=== PATIENT | male | born 1975 | race Caucasian/White ===

== ENCOUNTER 2025-03-27 02:40 | Inpatient (IN) | payer OTHER, SELFPAY ==
[2025-03-27] MEDS ORDERED: ONDANSETRON 4 MG/2 ML VIAL ONE ×3 (02:57→12:44)
[2025-03-27] MEDS ORDERED: FAMOTIDINE 20 MG/2 ML VIAL IV ONE (02:57)
[2025-03-27] MEDS ORDERED: MORPHINE 4 MG/ML SYR ONE ×2 (02:57→04:02)
[2025-03-27] MEDS ORDERED: NA CHLORIDE 0.9% 1,000 ML ONE ×2 (02:58→08:57)
[2025-03-27 03:19] LABS: Absolute Lymphocytes (CBC) 1.9 K/uL (0.7-4.9); Hematocrit 53.1 % (39.6-49.0); Hemoglobin 18.0 g/dL (13.6-17.9); MCH 29.7 pg (27.0-35.0); MCHC 33.9 g/dL (32.0-36.0); MCV 87.8 fL (80-100); MPV 8.1 fL (7.6-11.3); Nucleated RBC Absolute Count 0.0 (0-0); Nucleated Red Blood Cells % 0.1 % (0-0); RBC Red Blood Cell Count 6.05 M/uL (4.33-5.43); White Blood Count 13.70 thou/uL (4.3-10.9)
[2025-03-27 03:29] LABS: ALT/SGPT 39.0 U/L (16-61); AST/SGOT 22.0 U/L (15-37); Albumin 4.2 g/dL (3.4-5.0); Albumin/Globulin Ratio 1.1 (1.1-1.8); Alkaline Phosphatase 58.0 U/L (45-117); Anion Gap 7.7 mEq/L (5.0-15.0); BUN Blood Urea Nitrogen 27.0 mg/dL (7-18); Globulin 3.8 g/dL (2.3-3.5); Glucose Level 152.0 mg/dL (74-106); Lipase 27.0 U/L (13-75); Potassium 3.7 mEq/L (3.5-5.1)
--- NOTE | 2025-03-27 06:21 | RAD REPORT ---
EXAM: CT Abdomen and Pelvis With Intravenous Contrast CLINICAL HISTORY: The patient is 49 years old and is Male; ABD PAIN TECHNIQUE: Axial computed tomography images of the abdomen and pelvis with intravenous contrast. Sagittal and coronal reformatted images were created and reviewed. This CT exam was performed using one or more of the following dose reduction techniques: automated exposure control, adjustmen t of the mA and/or kV according to patient size, and/or use of iterative reconstruction technique. COMPARISON: No relevant prior studies available. FINDINGS: Lung bases: Unremarkable. No mass. No consolidation. ABDOMEN: Liver: Unremarkable. No mass. Gallbladder and bile ducts: 3.8 cm gallstone near the gallbladder neck. Mildly distended gallblad nila. No ductal dilation. Pancreas: No findings to suggest acute pancreatitis. No mass visualized. No ductal dilation. Spleen: Unremarkable. No splenomegaly. Adrenals: Unremarkable. No mass. Kidneys and ureters: Unremarkable. No solid mass. No hydronephrosis. Stomach and bowel: No bowel dilatation or obstruction. No bowel wall thickening. PELVIS: Appendix: The visualized appendix is normal. No pericecal inflammation to suggest acute appendici tis. Bladder: Unremarkable. No mass. Reproductive: Unremarkable as visualized. ABDOMEN and PELVIS: Intraperitoneal space: Unremarkable. No free air. No significant fluid collection. Bones/joints: L5-S1 degenerative disc disease. No acute fracture. No dislocation. Soft tissues: Umbilical hernia containing fat only. No evidence of edema/incarceration. Vasculature: Unremarkable. No abdominal aortic aneurysm. Lymph nodes: No pathologically enlarged lymph nodes. IMPRESSION: 3.8 cm gallstone near the gallbladder neck. Mildly distended gallbladder. Ultrasound follow-up john paul mmended. Electronically signed by: Ela Case MD 03/27/2025 05:42 AM CDT V2 Due to temporary technical issues with the [employer] reporting system, reports are being nicolasa d by the in-house radiologist without review as a courtesy to ensure prompt reporting the interpreting radiologist is fully responsible for the content of the report. Transcribed Date/Time: 03/27/2025 6:20 AM
[2025-03-27] MEDS ORDERED: KETOROLAC 30 MG/ML INJ ONE (06:29)
[2025-03-27] MEDS ORDERED: NA CHLORIDE 0.9% 100 ML ONE (06:30)
[2025-03-27] MEDS ORDERED: PIPERACIL/TAZO 3.375 GM VIAL IV ONE (06:30)
--- NOTE | 2025-03-27 06:36 | EDPHYS ---
Physician Documentation [facility] Name: Landry Bueno Age: 49 yrs Sex: Male : 1975 Arrival Date: 03/27/2025 Time: 02:40 Bed 14 Private MD: ED Physician Harmeet Wheeler HPI: 03/27 03:10 This 49 yrs old Male presents to ER via Wheelchair with complaints of Upper right side rt abd pain, Nausea. 03:10 Patient presents to the ED with an acute onset of an epigastric pain starting about rt 10:00 tonight. He has nausea, vomiting. States that the symptoms were acute in onset, have been constant since then. He has never had similar symptoms previously. Denies other acute complaints at this time, symptoms are moderate in severity, no other aggravating or alleviating factors.. Historical: - Allergies: 02:53 No Known Allergies; br2 - PMHx: 02:53 None; br2 - PSHx: 02:53 None; br2 - Immunization history:: Adult Immunizations up to date. - Infectious Disease History:: Denies. - Social history:: Smoking status: Patient denies any tobacco usage or history of. Patient/guardian denies using alcohol, street drugs. - Family history:: not pertinent. ROS: 03:10 Constitutional: Negative for fever, chills, and weight loss, Cardiovascular: Negative rt for chest pain, palpitations, and edema, Respiratory: Negative for shortness of breath, cough, wheezing, and pleuritic chest pain, MS/Extremity: Negative for injury and deformity, Skin: Negative for injury, rash, and discoloration, Neuro: Negative for headache, weakness, numbness, tingling, and seizure, 03:10 Abdomen/GI: Positive for abdominal pain, nausea and vomiting, Exam: 03:10 Constitutional: This is a well developed, well nourished patient who is awake, alert, rt and in no acute distress. Head/Face: Normocephalic, atraumatic. Chest/axilla: Normal chest wall appearance and motion. Nontender with no deformity. No lesions are appreciated. Cardiovascular: Regular rate and rhythm with a normal S1 and S2. No gallops, murmurs, or rubs. Normal PMI, no JVD. No pulse deficits. Respiratory: Lungs have equal breath sounds bilaterally, clear to auscultation and percussion. No rales, rhonchi or wheezes noted. No increased work of breathing, no retractions or nasal flaring. Abdomen/GI: Soft, non-tender, with normal bowel sounds. No distension or tympany. No guarding or rebound. No evidence of tenderness throughout. Skin: Warm, dry with normal turgor. Normal color with no rashes, no lesions, and no evidence of cellulitis. MS/ Extremity: Pulses equal, no cyanosis. Neurovascular intact. Full, normal range of motion. Neuro: Awake and alert, GCS 15, oriented to person, place, time, and situation. Cranial nerves II-XII grossly intact. Motor strength 5/5 in all extremities. Sensory grossly intact. Cerebellar exam normal. Normal gait. 03:10 ECG was reviewed by the Attending Physician. 03:12 Abdomen/GI: Tenderness to the right upper quadrant, epigastrium with mild guarding, no rt rebound, distention Vital Signs: 02:51 BP 139 / 92; Pulse 55; Resp 18; Pulse Ox 99% on R/A; Weight 149.69 kg; Height 6 ft. 1 br2 in. ; Pain 6/10; 04:04 BP 110 / 57; Pulse 50; Resp 18; Pulse Ox 98% ; cp4 05:18 BP 124 / 70; Pulse 52; Resp 18; Pulse Ox 96% ; cp4 07:14 BP 131 / 81; Pulse 56; Resp 15 S; Pulse Ox 97% on R/A; kc6 02:51 Body Mass Index 43.54 (149.69 kg, 185.42 cm) br2 02:51 Pain Scale: Adult br2 MDM: 02:50 Medical Screening Exam initiated rt 06:41 Differential diagnosis: Cholecystitis, cholelithiasis, pancreatitis, gastritis. Data rt reviewed: vital signs, nurses notes, lab test result(s), radiologic studies. Consideration of Admission/Observation Patient was admitted/placed on observation. Management of patient was discussed with the following: Scaffold Worker: Discussed with Dr. Valencia, will evaluate patient, request hospitalist admission. I considered the following discharge prescriptions or medication management in the emergency department Medications were administered in the Emergency Department. See MAR. Independent interpretation of the following test(s) in the Emergency Department CT Scan: My interpretation is Cholelithiasis with dilated gallbladder seen on my interpretation of CT scan images. Counseling: I had a detailed discussion with the patient and/or guardian regarding the historical points, exam findings, and any diagnostic results supporting the discharge/admit diagnosis, lab results, radiology results, the need for further work-up and treatment in the hospital. Response to treatment: the patient's symptoms have markedly improved after treatment. 03/27 02:55 Order name: CBC with Diff; Complete Time: 03:50 rt 03/27 02:55 Order name: CMP; Complete Time: 03:50 rt 03/27 02:55 Order name: Lipase; Complete Time: 03:50 rt 03/27 02:55 Order name: UA Rfx Vishal Cult if indicated rt 03/27 03:04 Order name: Troponin High Sensitivity; Complete Time: 03:50 rt 03/27 08:29 Order name: CBC with Automated Diff EDMS 03/27 08:29 Order name: CBC with Automated Diff EDMS 03/27 08:29 Order name: Comprehensive Metabolic Panel EDMS 03/27 08:29 Order name: Comprehensive Metabolic Panel EDMS 03/27 02:55 Order name: CT Abd/Pelvis - IV Contrast Only rt 03/27 07:31 Order name: Abdomen Exam Limited EDMS 03/27 08:29 Order name: CONS Physician Consult EDMS 03/27 02:55 Order name: IV Saline Lock; Complete Time: 02:56 rt 03/27 02:55 Order name: Labs collected and sent; Complete Time: 02:56 rt EC:10 Rate is 50 beats/min. Rhythm is regular, Sinus bradycardia with No ectopy. Right axis rt deviation noted. PA interval is normal. QRS interval is normal. QT interval is normal. No Q waves. T waves are Inverted in leads III, V6. No ST changes noted. Administered Medications: 03:06 Drug: Famotidine IVP 20 mg IVP once; dilute with 10 mL 0.9% NaCl; give over 2 minutes cp4 Route: IVP; Site: left antecubital; 03:16 Follow up: Response: No adverse reaction cp4 03:06 Drug: NS 0.9% IV 1000 ml IV at 1 bolus Per protocol; to be given as a bolus over 60 cp4 minutes Route: IV; Rate: 1 bolus; Site: left antecubital; 06:53 Follow up: IV Status: Completed infusion cp4 03:07 Drug: Ondansetron IVP 4 mg IVP once; over 2 minutes Route: IVP; Site: left antecubital; cp4 03:16 Follow up: Response: No adverse reaction cp4 03:07 Drug: morphine IVP or IV 4 mg IVP once over 4 mins Route: IVP; Infused Over: 4 mins; cp4 Site: left antecubital; 03:16 Follow up: Response: No adverse reaction cp4 04:04 Drug: morphine IVP or IV 4 mg IVP once over 4 mins Route: IVP; Infused Over: 4 mins; cp4 Site: left antecubital; 06:53 Follow up: Response: No adverse reaction cp4 06:53 Drug: Ketorolac IVP 15 mg IVP once Route: IVP; Site: left antecubital; cp4 06:55 Follow up: Response: No adverse reaction cp4 06:53 Drug: Piperacillin-Tazobactam IVPB 3.375 grams IVPB once over 60 mins; (mix in NS 100 cp4 mL) Route: IVPB; Infused Over: 60 mins; Site: left antecubital; 07:16 Follow up: Response: No adverse reaction; IV Status: Completed infusion; IV Intake: kc6 100ml Disposition Summary: 03/27/25 06:35 Hospitalization Ordered Notes: Hospitalization Status: Inpatient Admission rt Provider: Slade Ramsey rt Condition: Stable rt Problem: new rt Symptoms: have improved rt Bed/Room Type: Standard rt Location: [facility] ER HOLD(03/27/25 10:51) kb3 Room Assignment: ERHOLD-(03/27/25 10:51) kb3 Diagnosis - Cholecystitis, unspecified rt Forms: - Medication Reconciliation Form rt - SBAR form rt - Leadership Thank You Letter rt Signatures: Dispatcher [employer] EDMS Annita Rushing RN RN kb3 Harmeet Wheeler MD MD rt Martha Martin cp4 Jaja Joseph RN RN br2 Courtney Nolan RN kc6 Corrections: (The following items were deleted from the chart) 02:56 02:56 CBC+H.LAB.BRZ ordered. EDMS EDMS 02:56 02:56 COMPREHENSIVE METABOLIC PANEL+C.LAB.BRZ ordered. EDMS EDMS 02:56 02:56 LIPASE+C.LAB.BRZ ordered. EDMS EDMS 02:56 02:56 UA Rfx Vishal Cult if indicated+U.LAB.BRZ ordered. EDMS EDMS 03:04 03:04 Troponin High Sensitivity+C.LAB.BRZ ordered. EDMS EDMS 10:51 06:35 Telemetry/MedSurg (Inpatient) rt kb3 10:51 06:35 rt kb3
--- NOTE | 2025-03-27 06:36 | ER ---
Nurse's Notes [facility] Name: Landry Bueno Age: 49 yrs Sex: Male : 1975 Arrival Date: 03/27/2025 Time: 02:40 Bed 14 Private MD: Diagnosis: Cholecystitis, unspecified Presentation: 03/27 02:51 Chief complaint: Patient states: RUQ PAIN NAUSEA/VOMITING SHARP/BURNING. Coronavirus br2 screen: Client denies travel out of the [place] in the last 14 days. Ebola Screen: Patient denies exposure to infectious person. Initial Sepsis Screen: Does the patient meet any 2 criteria? No. Patient's initial sepsis screen is negative. Does the patient have a suspected source of infection? No. Patient's initial sepsis screen is negative. Risk Assessment: Do you want to hurt yourself or someone else? Patient reports no desire to harm self or others. Onset of symptoms was March 26, 2025 at 22:00. 02:51 Method Of Arrival: Wheelchair br2 02:51 Acuity: SHIRLEY 3 br2 Triage Assessment: 02:53 General: Appears uncomfortable, Behavior is cooperative, anxious, restless. Pain: br2 Complains of pain in epigastric area, right upper quadrant and left upper quadrant Pain currently is 6 out of 10 on a pain scale. GI: Reports upper abdominal pain, epigastric pain, nausea, vomiting. Historical: - Allergies: 02:53 No Known Allergies; br2 - PMHx: 02:53 None; br2 - PSHx: 02:53 None; br2 - Immunization history:: Adult Immunizations up to date. - Infectious Disease History:: Denies. - Social history:: Smoking status: Patient denies any tobacco usage or history of. Patient/guardian denies using alcohol, street drugs. - Family history:: not pertinent. Screenin:52 [facility] ED Fall Risk Assessment (Adult) History of falling in the last 3 months, cp4 including since admission No falls in past 3 months (0 pts) Confusion or Disorientation No (0 pts) Intoxicated or Sedated No (0 pts) Impaired Gait No (0 pts) Mobility Assist Device Used No (0 pt) Altered Elimination No (0 pt) Score/Fall Risk Level 0 - 2 = Low Risk Oriented to surroundings, Maintained a safe environment, Assessed \T\ reinforced patient's understanding of fall precautions, Hourly rounding (assess needs \T\ fall precautionary measures) done. Abuse screen: Denies threats or abuse. Denies injuries from another. Nutritional screening: No deficits noted. Tuberculosis screening: No symptoms or risk factors identified. Never had TB. Assessment: 02:52 General: Appears in no apparent distress. uncomfortable, Behavior is calm, cooperative, cp4 appropriate for age. Pain: Complains of pain in abdomen Pain does not radiate. Pain currently is 9 out of 10 on a pain scale. Neuro: Level of Consciousness is awake, alert, obeys commands, Oriented to person, place, time, situation. Cardiovascular: Patient's skin is warm and dry. Respiratory: Airway is patent Respiratory effort is even, unlabored. GI: Abdomen is round non-distended, Bowel sounds present X 4 quads. Abd is soft and non tender X 4 quads. Reports upper abdominal pain. : No signs and/or symptoms were reported regarding the genitourinary system. EENT: No signs and/or symptoms were reported regarding the EENT system. Derm: No signs and/or symptoms reported regarding the dermatologic system. Musculoskeletal: No signs and/or symptoms reported regarding the musculoskeletal system. 07:15 General: Appears in no apparent distress. uncomfortable, obese, well groomed, well kc6 developed, Behavior is calm, cooperative, appropriate for age. Pain: Complains of pain in right upper quadrant. Neuro: Level of Consciousness is awake, alert, obeys commands, Oriented to person, place, time, situation, Appropriate for age. Cardiovascular: Capillary refill < 3 seconds. Respiratory: Airway is patent Trachea midline Respiratory effort is even, unlabored, Respiratory pattern is regular, symmetrical. GI: Abdomen is round non-distended, obese, Bowel sounds present X 4 quads. Abd is soft X 4 quads Abdomen is tender to palpation in right upper quadrant Reports upper abdominal pain, nausea, Patient currently denies diarrhea, vomiting. : No signs and/or symptoms were reported regarding the genitourinary system. EENT: No signs and/or symptoms were reported regarding the EENT system. Derm: No signs and/or symptoms reported regarding the dermatologic system. Skin is intact, is healthy with good turgor, Skin is pink, warm \T\ dry. Musculoskeletal: No signs and/or symptoms reported regarding the musculoskeletal system. Circulation, motion, and sensation intact. Range of motion: intact in all extremities. 08:15 Reassessment: Patient appears in no apparent distress at this time. No changes from kc6 previously documented assessment. Patient and/or family updated on plan of care and expected duration. Pain level reassessed. Patient is alert, oriented x 3, equal unlabored respirations, skin warm/dry/pink. Vital Signs: 02:51 BP 139 / 92; Pulse 55; Resp 18; Pulse Ox 99% on R/A; Weight 149.69 kg; Height 6 ft. 1 br2 in. ; Pain 6/10; 04:04 BP 110 / 57; Pulse 50; Resp 18; Pulse Ox 98% ; cp4 05:18 BP 124 / 70; Pulse 52; Resp 18; Pulse Ox 96% ; cp4 07:14 BP 131 / 81; Pulse 56; Resp 15 S; Pulse Ox 97% on R/A; kc6 02:51 Body Mass Index 43.54 (149.69 kg, 185.42 cm) br2 02:51 Pain Scale: Adult br2 ED Course: 02:42 Patient arrived in ED. gm2 02:42 Harmeet Wheeler MD is Attending Physician. rt 02:51 Jaja Joseph RN is Primary Nurse. br2 02:52 Bed in low position. Call light in reach. Side rails up X2. Provided Education on: cp4 abdominal pain . 02:52 No provider procedures requiring assistance completed. cp4 02:53 Triage completed. br2 02:53 Arm band placed on right wrist. br2 03:07 Initial lab(s) drawn, by ED staff, sent to lab. EKG done, by ED staff, reviewed by Harmeet Wheeler MD. Inserted saline lock: 20 gauge in left antecubital area, using aseptic technique. Blood collected. Flushed with 10 mL NS. 04:27 CT Abd/Pelvis - IV Contrast Only In Process Unspecified. EDMS 06:34 Slade Ramsey MD is Hospitalizing Provider. rt 07:00 Report received from ARMANDO Cantu. kc6 07:00 Patient has correct armband on for positive identification. Bed in low position. Call kc6 light in reach. Side rails up X2. Pulse ox on. NIBP on. Door closed. Noise minimized. Lights dimmed. Warm blanket given. Pillow given. Verbal reassurance given. 08:02 Abdomen Exam Limited In Process Unspecified. EDMS 09:00 Patient admitted, IV remains in place. kc6 Administered Medications: 03:06 Drug: Famotidine IVP 20 mg IVP once; dilute with 10 mL 0.9% NaCl; give over 2 minutes cp4 Route: IVP; Site: left antecubital; 03:16 Follow up: Response: No adverse reaction cp4 03:06 Drug: NS 0.9% IV 1000 ml IV at 1 bolus Per protocol; to be given as a bolus over 60 cp4 minutes Route: IV; Rate: 1 bolus; Site: left antecubital; 06:53 Follow up: IV Status: Completed infusion cp4 03:07 Drug: Ondansetron IVP 4 mg IVP once; over 2 minutes Route: IVP; Site: left antecubital; cp4 03:16 Follow up: Response: No adverse reaction cp4 03:07 Drug: morphine IVP or IV 4 mg IVP once over 4 mins Route: IVP; Infused Over: 4 mins; cp4 Site: left antecubital; 03:16 Follow up: Response: No adverse reaction cp4 04:04 Drug: morphine IVP or IV 4 mg IVP once over 4 mins Route: IVP; Infused Over: 4 mins; cp4 Site: left antecubital; 06:53 Follow up: Response: No adverse reaction cp4 06:53 Drug: Ketorolac IVP 15 mg IVP once Route: IVP; Site: left antecubital; cp4 06:55 Follow up: Response: No adverse reaction cp4 06:53 Drug: Piperacillin-Tazobactam IVPB 3.375 grams IVPB once over 60 mins; (mix in NS 100 cp4 mL) Route: IVPB; Infused Over: 60 mins; Site: left antecubital; 07:16 Follow up: Response: No adverse reaction; IV Status: Completed infusion; IV Intake: kc6 100ml Medication: 02:52 VIS not applicable for this client. cp4 Intake: 07:16 IV: 100ml; Total: 100ml. kc6 Outcome: 06:35 Decision to Hospitalize by Provider. rt 09:00 Admitted to ER Hold. [facility]. kc6 09:00 Condition: good 09:00 Instructed on the need for admit, 11:46 Patient left the ED. kc6 Signatures: Dispatcher [employer] EDMS Courtney Nolan RN RN kc6 Harmeet Wheeler MD MD rt Martha Martin cp4 Aurelia Helms gm2 Jaja Joseph RN RN br2 Corrections: (The following items were deleted from the chart) 07:12 General: Appears in no apparent distress. comfortable, obese, well groomed, well kc6 developed, Behavior is calm, cooperative, appropriate for age, kc6 07:12 Neuro: Level of Consciousness is awake, alert, obeys commands, Oriented to kc6 person, place, time, situation, Appropriate for age kc6 : 07:12 Cardiovascular: Denies chest pain, Capillary refill < 3 seconds Dialysis shunt: kc6 in the right clavicle, with no palpable pulse, with no auscultated thrill, with no erythema, with no edema, no bleeding noted kc6 : 07:12 Respiratory: Airway is patent Trachea midline Respiratory effort is even, kc6 unlabored, Respiratory pattern is regular, symmetrical, kc6 : 07:12 GI: Abdomen is round non-distended, obese, Bowel sounds present X 4 quads. Abd is kc6 soft and non tender X 4 quads. Reports upper abdominal pain, diarrhea, nausea, Patient currently denies vomiting, kc6 : 07:12 : No signs and/or symptoms were reported regarding the genitourinary system. kc6kc6 : 07:12 EENT: No signs and/or symptoms were reported regarding the EENT system. kc6 kc6 : 07:12 Derm: No signs and/or symptoms reported regarding the dermatologic system. Skin kc6 is intact, is healthy with good turgor, Skin is pink, warm \T\ dry. kc6 : 07:12 Musculoskeletal: No signs and/or symptoms reported regarding the musculoskeletal kc6 system. Circulation, motion, and sensation intact. Range of motion: intact in all extremities, 6 07:15 07:11 BP 164 / 73; Pulse 71bpm; Resp 18bpm; Spontaneous; Pulse Ox 97% RA; kc6 kc6
--- NOTE | 2025-03-27 08:23 | RAD REPORT ---
Abdomen Exam Limited: 03/27/2025 8:00 AM CLINICAL HISTORY: gallstone disease STUDY: Limited right upper quadrant ultrasound of abdomen. COMPARISON: None. FINDINGS: Liver: Within normal limits. Bile ducts: No intrahepatic or extrahepatic biliary ductal dilatation. Common bile duct measures 3 mm. Gallbladder: Gallbladder wall thickening with stone impacted at the gallbladder neck. The gallbladder is distended. Trace pericholecystic fluid. A sonographic Stauffer sign was not reported. The gallbladder wall measures 6 mm. IMPRESSION: Gallstone impacted at the gallbladder neck with gallbladder wall thickening, trace pericholecystic fl uid, and luminal distention concerning for acute cholecystitis.
[2025-03-27] MEDS ORDERED: ACETAMINOPHEN 325 MG TABLET PO PRN (08:24)
--- NOTE | 2025-03-27 08:31 | P.HP ---
Certification for Inpatient Patient admitted to: Inpatient With expected LOS: >2 Midnights Practitioner: I am a practitioner with admitting privileges, knowledge of patient current condition, hospital course, and medical plan of care. Services: Services provided to patient in accordance with Admission requirements found in Title 42 Section 412.3 of the Code of Federal Regulations Patient History Date of Service: 03/27/25 Reason for admission: abdominal pain History of Present Illness: 49-year-old male presents to the ER with complaints of abdominal pain since around 9 PM last night. He did report having some nausea. He denied any diarrhea. He thought he may have had food poisoning. The patient reports that he does not have many major medical conditions. He has not had any previous surgeries. He does not have history of previous gallstone diseases. That he is aware of. In the ER he had imaging suggestive of acute cholecystitis. Surgery was called in the ER. His pain is currently controlled. Review of Systems 10-point ROS is otherwise unremarkable Physical Examination - Physical Exam General: Alert, Oriented x3 HEENT: Atraumatic, Normocephalic Respiratory: Clear to auscultation bilaterally, Normal air movement Cardiovascular: Normal pulses, Regular rate/rhythm Gastrointestinal: Soft and benign, Non-distended Musculoskeletal: No clubbing, No swelling Integumentary: No rashes, No breakdown - Studies Laboratory Data (last 24 hrs) 03/27/25 03/27/25 03:03 03:03 WBC 13.70 H Hgb 18.0 H Hct 53.1 H Plt Count 259 Sodium 135 L Potassium 3.7 BUN 27 H Creatinine 1.30 Glucose 152 H Total Bilirubin 0.9 AST 22 ALT 39 Alkaline Phosphatase 58 Lipase 27 Assessment and Plan - Problems (Diagnosis) (1) Gallstone Current Visit: Yes Status: Acute (2) Cholecystitis Current Visit: Yes Status: Acute - Plan 49-year-old male presents with abdominal pain since last night Acute cholecystitis Gallstones Plan: 1. N.p.o. 2. IV fluids 3. As needed analgesics and antiemetics 4. Zosyn IV 5. Surgical consultation 6. Right upper quadrant ultrasound DVT: SCDs Code: Full - Advance Directives Does patient have a Living Will: No Does patient have a Durable POA for Healthcare: No
[2025-03-27] MEDS: NA CHLORIDE 0.9% 1,000 ML IV SCH (09:00)
[2025-03-27] MEDS ORDERED: MORPHINE 2 MG/ML SYR ONE (09:27)
[2025-03-27] MEDS: ONDANSETRON 4 MG/2 ML VIAL IV PRN (09:44)
[2025-03-27] MEDS: MORPHINE 2 MG/ML SYR IV PRN (09:44)
[2025-03-27 09:51] LABS: Sqamous Epithelial None Seen /HPF (None Seen); Urine Culture Reflex Order NOT NEEDED; Urine Microscopic Reflex YN ORDER UMIC
[2025-03-27] MEDS ORDERED: MIDAZOLAM HCL 2 MG/2 ML INJ ONE ×2 (12:44→15:28)
[2025-03-27] MEDS ORDERED: LIDOCAINE 2% MPF 5 ML VIAL ONE ×2 (12:44→15:28)
[2025-03-27] MEDS ORDERED: FENTANYL CITR 100 MCG/2 ML ONE (12:44)
[2025-03-27] MEDS ORDERED: ROCURONIUM 50 MG/5 ML VIAL IV ONE ×2 (12:44→15:27)
--- NOTE | 2025-03-27 13:10 | CON ---
Date of Consultation: 03/27/2025 Brief History Of Present Illness: The patient is a 49-year-old male who presents to ER with complain ts of abdominal pain beginning last night around 9:00 p.m., is in the epigastrium with right upper qu adrant sharp stabbing terrible pain. He has never had similar episodes before in the past. No sick contacts. No recent travel. No new food exposures. Denies diarrhea or other gastric complaints. H e notes that the pain got progressively worse after eating his meal and he came to the ER with the ab ove-stated complaints. Past Medical History: Negative. Past Surgical History: Negative. Allergies: NO KNOWN DRUG ALLERGIES. Home Medications: Include testosterone placement therapy only. Review of Systems: 10-point review of systems other than HPI, denies. Physical Examination: General: At the time of the examination, he is awake, alert, and oriented. Psychiatric: Appropriate. Conversive. HEENT: Normocephalic. Sclerae anicteric. Mucous membranes are moist. Oropharynx clear. Neck: Supple without JVD. Chest: Normal to expansion and excursion. Cardiovascular: Regular rate and rhythm. Pulmonary: Clear to auscultation bilaterally. Abdomen: Soft with positive right upper quadrant tenderness to palpation. Positive rebound. Positi ve guarding. Positive Stauffer sign. He also has a partially reducible umbilical hernia containing fa t. Extremities: No clubbing, cyanosis, or edema. Skin: Warm and dry. Social History: The patient denies smoking, alcohol, or recreational drug use. He works in sales. Laboratory Data: He had a laboratory exam reveals a white blood cell count of 13.7, hemoglobin is 18 .0, hematocrit of 53.1, platelet count was 259. His sodium is 135, potassium 3.7, chloride 100, car bon dioxide is 31, BUN 27, creatinine 1.3, glucose is 152, calcium 9.8. Total bilirubin 0.9, AST 22, ALT 39, alkaline phosphatase is 58. Lipase is 27. He had a UA, which was essentially negative. He had imaging performed as well, which included an ultrasound, which was officially read as gallstone impacted in the gallbladder neck with gallbladder wall thickening, trace pericholecystic fluid, and l uminal distention concerning for acute cholecystitis. Additionally, he had a CT of the abdomen and p sintia officially read as 3.8 cm gallstone near the neck of the gallbladder. Mildly distended gallbla dder. His umbilical hernia is containing fat only. Assessment And Plan: This is a 49-year-old male who comes in with signs and symptoms of acute calcul ous, cholecystitis. 1. IV fluid hydration. 2. Antibiotic coverage. 3. I have explained the risks, benefits, and alternatives of laparoscopic, possible open cholecystect galina with indocyanine green cholangiography, contrast angiography and indicated procedures include, bu t not limited to bleeding, infection, damage to surrounding tissues, need for further operative proce dures. In addition, blood clots, heart attacks, strokes, or other unforeseen complications in the pe rioperative period. Injury to bile ducts, intestines. The patient displayed understanding of above stated plan and agreed to proceed as indicated. FRANCES/ZORA Voice ID: [id number] Report ID: [id number]
[2025-03-27] MEDS ORDERED: DEXMEDETOMIDINE HCL 200 MCG/2 ML VIAL ONE (13:22)
[2025-03-27] MEDS ORDERED: SUGAMMADEX SODIUM 200 MG/2 ML VIAL IV ONE (13:26)
[2025-03-27] MEDS ORDERED: PIPER TAZO 3.375 GM in NA CHLORIDE 0.9% 100 ML IV SCH (14:00)
[2025-03-27] MEDS: PIPER TAZO 3.375 GM in NA CHLORIDE 0.9% 100 ML IV SCH (15:18)
[2025-03-27] MEDS ORDERED: SUCCINYLCHOLINE 20 MG/ML (10 ML) IV ONE (15:27)
[2025-03-27] MEDS ORDERED: FENTANYL CITR 250 MCG/5 ML ONE (15:28)
[2025-03-27] MEDS: LIDOCAINE HCL/EPINEPHRINE 20 ML MDV ONE (16:08)
[2025-03-27] MEDS: Ringers Lactate 1,000 ML IV ONE (16:22)
--- NOTE | 2025-03-27 16:41 | P.OP ---
Preoperative diagnosis: Acute Calculous Cholecystitis Postoperative diagnosis: Acute Calculous Cholecystitis Primary procedure: Laparoscopic Cholecystectomy with ICG Cholangiography Anesthesia: GETA + Local Estimated blood loss: <5cc Specimen: Gallbladder Findings: Acute Calculous Cholecystitis Complications: None Transferred to: Recovery Room Condition: Good
[2025-03-27] MEDS: HYDROMORPHONE HCL 1 MG/ML INJ ONE ×2 (17:25→17:38)
[2025-03-27 17:52] VITALS: O2SAT 95
[2025-03-27 21:39] VITALS: BMI 43.5
--- NOTE | 2025-03-27 23:55 | OP ---
Date of Procedure: 03/27/2025 Surgeon: Tyrel Valencia MD, Preoperative Diagnosis: Acute calculous cholecystitis. Postoperative Diagnosis: Acute calculous cholecystitis. Procedure Performed: Laparoscopic cholecystectomy with indocyanine green cholangiography. Anesthesia: General endotracheal plus local, 1% lidocaine with epinephrine. Estimated Blood Loss: 5 cc. Specimen: Gallbladder. Findings: Acute calculous cholecystitis. Complications: None. Disposition: Patient transferred to recovery room in good condition. Procedure In Detail: After informed consent was obtained, patient was prepped and draped in the usua l sterile fashion. After adequate anesthesia was achieved, supraumbilical area was anesthetized down to subcutaneous tissues. A 5 mm 0-degree optical trocar was introduced into the abdomen without inc ident or complication with no injury to vital structures upon entry to the abdomen. Two additional t rocars placed, one in the epigastrium and one in the right upper quadrant. Both of these were simila rly anesthetized, sharply incised. A 5 mm trocar was placed under direct vision without incident or complication. The umbilical trocar was then upsized to 12 mm under direct vision without incident or complication. The 12 mm trocar was placed and visualized the umbilical hernia at the infraumbilical /umbilical position, which was not involved in the surgical field. There were no contents at this po int, but preperitoneal fat was evident in the area. At this point, patient positioned in the head up right-side up position. Ratcheted graspers used to grasp patient's gallbladder, placed towards annalee ent's the right shoulder. Dissection continued down the Frank pouch of the gallbladder after deco mpressing the fundus of the gallbladder with a decompression needle. I dissected down 3 structures i dentified both cystic duct. Indocyanine green cholangiography confirmed the anatomy and an anterior- posterior branch of the cystic artery. These were both skeletonized and a critical view of safety wa s obtained at this point showing these very small structures entering the gallbladder. Indocyanine g reen cholangiography confirmed the position of the cystic duct at this point too. In addition, the c ritical view of safety. At this point, double titanium clips were placed doubly on the proximal side and singly on the distal side of both the cystic duct and anterior-posterior branch of the cystic ar godfrey. These structures were then ligated between Endo Mak without incident or complication. The gallbladder was then removed from the hepatic fossa without incident or complication, placed in an En doCatch bag, removed through the umbilical trocar site, sent off for pathologic examination. The are a was copiously irrigated and suctioned out until completely clear. Minimal hemostatic maneuvers wer e required on the gallbladder hepatic fossa and good hemostasis was achieved quite easily. At this p oint, the area was irrigated once again, suctioned out until completely dry. Clips found to be in go od anatomic position. There was no leakage of bile at the end of procedure as confirmed by the indoc yanine green cholangiography once again. At this point, patient positioned back in neutral position. The remaining effluent was suctioned out. The 12 mm trocar site was then closed using a Aldo-Jai torsten suture passer with a #1 Vicryl in interrupted fashion. Good approximation of tissues and the a bdomen was desufflated under direct vision without incident or complication. Remaining trocars remov ed. All skin incisions were then copiously irrigated, closed with a 4-0 Monocryl in a running fashio n. Dermabond placed over top. Patient tolerated the procedure without incident or complication and transferred to PACU in good condition. All counts correct at the end of the case. FRANCES/ZORA Voice ID: [id number] Report ID: [id number]
[2025-03-28 07:08] LABS: Absolute Lymphocytes (CBC) 1.0 K/uL (0.7-4.9); Hematocrit 48.2 % (39.6-49.0); Hemoglobin 16.2 g/dL (13.6-17.9); MCH 29.5 pg (27.0-35.0); MCHC 33.5 g/dL (32.0-36.0); MCV 88.2 fL (80-100); MPV 7.7 fL (7.6-11.3); Nucleated RBC Absolute Count 0.0 (0-0); Nucleated Red Blood Cells % 0.1 % (0-0); RBC Red Blood Cell Count 5.47 M/uL (4.33-5.43); White Blood Count 9.10 thou/uL (4.3-10.9)
[2025-03-28 07:28] LABS: ALT/SGPT 45.0 U/L (16-61); AST/SGOT 29.0 U/L (15-37); Albumin 3.1 g/dL (3.4-5.0); Albumin/Globulin Ratio 0.9 (1.1-1.8); Alkaline Phosphatase 44.0 U/L (45-117); Anion Gap 6.0 mEq/L (5.0-15.0); BUN Blood Urea Nitrogen 13.0 mg/dL (7-18); Globulin 3.3 g/dL (2.3-3.5); Glucose Level 108.0 mg/dL (74-106); Potassium 4.0 mEq/L (3.5-5.1)
[2025-03-28 12:07] VITALS: BP 127/70; TEMP 99.4
[2025-03-28] MEDS: HYDROCODONE/APAP 5/325 MG TAB PO PRN (13:08)
[2025-03-28 16:07] LABS: Potassium 3.8 mEq/L (3.5-5.1)
[2025-03-28 16:10] LABS: Glucose Level 92.0 mg/dL (74-106)
[2025-03-28 16:11] LABS: Albumin 3.1 g/dL (3.4-5.0); Anion Gap 7.8 mEq/L (5.0-15.0); BUN Blood Urea Nitrogen 9.0 mg/dL (7-18)
[2025-03-28 16:13] LABS: ALT/SGPT 46.0 U/L (16-61); AST/SGOT 33.0 U/L (15-37)
[2025-03-28 16:16] LABS: Albumin/Globulin Ratio 0.9 (1.1-1.8); Bilirubin Indirect, Calculated 0.9 mg/dL (0.2-0.8); Globulin 3.4 g/dL (2.3-3.5)
[2025-03-28 16:17] LABS: Alkaline Phosphatase 47.0 U/L (45-117)
--- NOTE | 2025-04-08 02:48 | P.DS ---
Discharge Date: 03/28/25 Disposition: ROUTINE DISCHARGE Discharge Condition: GOOD Reason for Admission: abdominal pain Brief History of Present Illness: 49-year-old male presents to the ER with complaints of abdominal pain since around 9 PM last night. He did report having some nausea. He denied any diarrhea. He thought he may have had food poisoning. The patient reports that he does not have many major medical conditions. He has not had any previous surgeries. He does not have history of previous gallstone diseases. That he is aware of. In the ER he had imaging suggestive of acute cholecystitis. Surgery was called in the ER. His pain is currently controlled. Hospital Course: Patient is status post laparoscopic cholecystectomy. Continue with IV antibiotics and IV fluids. Patient status post surgery and clinically doing well. Outpatient follow-up with general surgery. Vital Signs/Physical Exam: Temp Pulse Resp BP Pulse Ox 99.4 F 94 H 14 127/70 92 03/28/25 12:00 03/28/25 12:00 03/28/25 12:00 03/28/25 12:00 03/28/25 12:00 General: Alert, In no apparent distress, Oriented x3 Laboratory Data at Discharge: WBC 9.10 thou/uL (4.3-10.9) 03/28/25 06:35 Hgb 16.2 g/dL (13.6-17.9) D 03/28/25 06:35 Hct 48.2 % (39.6-49.0) 03/28/25 06:35 Plt Count 206 thou/uL (152-406) 03/28/25 06:35 Sodium 137 mEq/L (136-145) 03/28/25 14:50 Potassium 3.8 mEq/L (3.5-5.1) 03/28/25 14:50 BUN 9 mg/dL (7-18) 03/28/25 14:50 Creatinine 1.01 mg/dL (0.70-1.30) 03/28/25 14:50 Glucose 92 mg/dL (74-106) 03/28/25 14:50 Total Bilirubin 1.2 mg/dL (0.2-1.0) H 03/28/25 14:50 Total Bilirubin Cancelled 03/28/25 14:50 AST 33 U/L (15-37) 03/28/25 14:50 AST Cancelled 03/28/25 14:50 ALT 46 U/L (16-61) 03/28/25 14:50 ALT Cancelled 03/28/25 14:50 Alkaline Phosphatase 47 U/L (45-117) 03/28/25 14:50 Alkaline Phosphatase Cancelled 03/28/25 14:50 Lipase 27 U/L (13-75) 03/27/25 03:03 Home Medications: Amox/Clavulanate [Augmentin 875-125 Tab] 875 mg PO BID #14 tab 03/28/25 Hydrocodone 5/APAP 325 [[place] 5/325*] 1 tab PO Q6HP PRN #20 tab 03/28/25 New Medications: Amox/Clavulanate [Augmentin 875-125 Tab] 875 mg PO BID #14 tab Hydrocodone 5/APAP 325 [[place] 5/325*] 1 tab PO Q6HP PRN #20 tab PRN Reason: Pain Scale 5-7 (Moderate) Physician Discharge Instructions: -DC IV and DC home -Follow-up with PCP in 1 to 2 weeks -Follow-up with Surgery in 1 to 2 weeks -Please call Dr. Dukes at [phone] if any questions regarding hospital stay -Please call nursing station at [phone] if any nursing or medication questions -Return to the emergency room if symptoms worsen Diet: [place] Activity: No lifting more than 10 lbs Followup: Tyrel Valencia MD [ACTIVE - CAN ADMIT] - NONE,NONE [Primary Care Provider] - Time spent managing pt's care (in minutes): 35
== END 2025-03-28 17:08 | disposition home or self-care (01) | DRG 418 ==
LOC: ER 02:40 → ERHOLD 08:24 → 4TH 12:13
PROVIDERS: ADMIT Internal Medicine; ATTEND Hospitalist
PROC: BF52200 Other Imaging of Gallbladder using Fluorescing Agent, Indocyanine Green Dye, Intraoperative (ICD-10-PCS; 2025-03-27)
PROC: 0FT44ZZ Resection of Gallbladder, Percutaneous Endoscopic Approach (ICD-10-PCS; principal; 2025-03-27 16:00)
DX: K80.00 Calculus of gallbladder with acute cholecystitis without obstruction (principal); Z68.41 Body mass index [BMI] 40.0-44.9, adult; E66.01 Morbid (severe) obesity due to excess calories
CPT/HCPCS: 36415; 74177; 76705; 80053; 81001; 82248; 83690; 84484; 85025; 88304; 93005; 96361; 96365; 96375; 99285; G0378; J0330; J1171; J2003; J2250; J2270; J2405; J2543; J2704; J3010; J7030; J7120; Q9967